=== PATIENT | female | born 1955 | race Caucasian/White ===

== ENCOUNTER 2022-04-03 15:28 | Observation (INO) | payer MEDICARE, BC ==
[2022-04-03] MEDS ORDERED: Iopamidol 755 Mg/ML 75 ML Bottle IVPUSH ONE (16:52)
[2022-04-03] MEDS ORDERED: Sodium Chloride 0.9% 50 ML IV ONE (17:01)
[2022-04-03] MEDS: Dextrose 5%-0.45% NaCl 1,000 ML IV SCH (17:04)
[2022-04-03] MEDS: Ondansetron 4 MG/2 ML SDV IVPUSH SCH (17:05)
[2022-04-03] MEDS: Acetaminophen 325 MG Tab PO PRN (19:05)
[2022-04-04] MEDS: Dextrose 5%-0.45% NaCl 1,000 ML IV SCH ×2 (00:54→08:49)
[2022-04-04] MEDS: Acetaminophen 325 MG Tab PO PRN ×2 (01:04→14:49)
[2022-04-04] MEDS: Ondansetron 4 MG/2 ML SDV IVPUSH SCH ×3 (01:08→16:05)
[2022-04-04] MEDS ORDERED: Nitroglycerin 0.4 MG Tab.SL SL PRN (01:34)
[2022-04-04] MEDS ORDERED: Lidocaine 2% 100 MG/5 ML Syringe IVPUSH PRN (01:34)
[2022-04-04] MEDS ORDERED: EPINEPHrine 1:10,000 1 MG/10 ML Syringe IVPUSH PRN (01:34)
[2022-04-04] MEDS ORDERED: Atropine 0.1 MG/ML 10 ML Syringe IVPUSH PRN (01:34)
[2022-04-04 06:04] LABS: ANION GAP 7.9 mmol/L (5-15)
[2022-04-04] MEDS ORDERED: Piperacillin/Tazobactam/Dext 3.375 GM in Premix Bag 1 BAG IV SCH (12:00)
== END 2022-04-04 17:35 ==
LOC: KA.MS 16:31
PROVIDERS: ADMIT Physician Assistant Medical; ATTEND Nurse Practitioner Family
DX: K75.9 Inflammatory liver disease, unspecified (principal); R07.89 Other chest pain; I45.10 Unspecified right bundle-branch block; R79.82 Elevated C-reactive protein (CRP); E78.5 Hyperlipidemia, unspecified; G47.33 Obstructive sleep apnea (adult) (pediatric); I10 Essential (primary) hypertension; E66.01 Morbid (severe) obesity due to excess calories; R50.81 Fever presenting with conditions classified elsewhere; Z68.41 Body mass index [BMI] 40.0-44.9, adult; Z79.899 Other long term (current) drug therapy
CPT/HCPCS: 36415; 74177; 80053; 84484; 85025; 86140; 87040; 96365; 96375; A9270-GY; G0378; G0379; J2405; J2543; J7042; Q9967

== ENCOUNTER 2025-05-22 12:31 | Emergency (ER) | payer MEDICARE ==
[2025-05-22 12:53] LABS: BASOPHILS ABSOLUTE AUTO 0.04 10^3/uL (0.00-0.10); BASOPHILS PERCENT AUTO 0.6 % (0.0-1.0); EOSINOPHILS ABSOLUTE AUTO 0.19 10^3/uL (0.10-0.30); EOSINOPHILS PERCENT AUTO 2.7 % (1.0-3.0); IMMATURE GRAN ABSOLUTE AUTO 0.03 10^3/uL (0.00-0.04); IMMATURE GRAN PERCENT AUTO 0.4 % (0.0-0.4); LYMPHOCYTES ABSOLUTE AUTO 1.13 10^3/uL (1.00-4.00); LYMPHOCYTES PERCENT AUTO 16.2 % (20.0-40.0); MEAN PLATELET VOLUME 10.0 fL (7.4-10.4); MONOCYTES ABSOLUTE AUTO 0.49 10^3/uL (0.10-0.80); MONOCYTES PERCENT AUTO 7.0 % (2.0-8.0); NEUTROPHILS ABSOLUTE AUTO 5.11 10^3/uL (2.50-7.00); NEUTROPHILS PERCENT AUTO 73.1 % (50.0-70.0); PLATELET COUNT,PLT 259 10^3/uL (150-400); RED BLOOD CELL COUNT 4.56 10^6/uL (3.80-5.50); RED CELL DISTRIBUTION WIDTH 13.4 % (11.5-14.5); WHITE BLOOD CELL COUNT,WBC 6.99 10^3/uL (5.00-10.00)
[2025-05-22] MEDS: Lactated Ringers 1,000 ML IV ONE (12:54)
[2025-05-22 13:08] LABS: ALANINE AMINOTRANSFERASE,ALT 27 U/L (14-63); ASPARTATE AMNIOTRANSFERASE,AST 22 U/L (15-37); BILIRUBIN TOTAL 0.3 mg/dL (0.2-1.0); BLOOD UREA NITROGEN,BUN 19 mg/dL (7-18); CARBON DIOXIDE,CO2 29.0 mmol/L (21.0-32.0); CHLORIDE,CL 104 mmol/L (98-107); CREATININE 0.67 mg/dL (0.51-1.17); ESTIMATED GFR 95 mL/min (>=60); GLUCOSE RANDOM 131 mg/dL (70-140); POTASSIUM,K 4.6 mmol/L (3.5-5.1); PROTEIN TOTAL,TP 6.9 g/dL (6.4-8.2); SODIUM,NA 141 mmol/L (136-145)
[2025-05-22] MEDS: Ondansetron 4 MG/2 ML SDV IVPUSH ONE (13:19)
[2025-05-22] MEDS: Sodium Chloride 0.9% 10 ML Syringe FLUSH PRN (13:29)
[2025-05-22] MEDS: Iopamidol 755 Mg/ML 100 ML Bottle IV ONE (13:55)
[2025-05-22 13:56] LABS: APPEARANCE,URINE CLEAR (CLEAR); GLUCOSE,URINE NEGATIVE (NEGATIVE); OCCULT BLOOD,URINE NEGATIVE (NEGATIVE)
[2025-05-22 14:01] LABS: EPITHELIAL CELLS,URINE RARE /LPF
== END 2025-05-22 15:55 | disposition home or self-care (01) ==
LOC: KA.ED 12:31
DX: K76.9 Liver disease, unspecified (principal); M89.8X8 Other specified disorders of bone, other site; Z88.8 Allergy status to other drugs, medicaments and biological substances; Z79.899 Other long term (current) drug therapy
CPT/HCPCS: 74177; 80053; 81001; 83690; 85025; 96361; 96374; 96375; 99284; 99284-25; J1171; J2405; J7120; Q9967